=== PATIENT | male | born 1985 | race Caucasian/White ===

== ENCOUNTER 2019-06-21 11:29 | Emergency (ER) | payer OTHER ==
[~2019-06-21] VITALS: Ht 170.2 cm; Wt 63.5 kg
--- NOTE | 2019-06-21 11:38 | ED Headache ---
General Chief Complaint: Head/Cervical Problems Stated Complaint: HEADACHE Source: patient Exam Limitations: no limitations History of Present Illness Date Seen by Provider: Jun 21, 2019 Time Seen by Provider: 11:37 Initial Comments 33 y/o male c/o headache syndrome onset yesterday. He has taken excedrin, advis, tylenol, excedrin migraine, with minimal relief. He takes nortryptylene nightly, he says for headache. He also took benadry. However, he does have insomnia, and both are also indicated for this. Headache is frontal, behind the eyes. He worked at this job yesterday. He doesn't work today. He also had difficulty sleeping last night. 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 He describes intermittent headaches, and last one was a year ago. He denies nausea, photophobia, aura, sensory or motor deficits during these episodes. He has been on Nortryptylene for 2 years. Occassionally there is visual d isturbances, but no true photophobia. Timing/Duration: 24 hours Severity/Quality: moderate, severe, throbbing Location: frontal Prior Headaches/Recent Trauma: no recent headache/trauma, occasional headaches Modifying Factors: improves with medication, improves with rest Associated Symptoms: nausea/vomiting Allergies and Home Medications Allergies Coded Allergies: amoxicillin (Verified Allergy, Unknown, hives, 06/21/19) Patient Home Medication List Home Medication List Reviewed: Yes Review of Systems Review of Systems Constitutional: see HPI Eyes: Vision Changes Ears, Nose, Mouth, Throat: no symptoms reported, see HPI Respiratory: no symptoms reported, cough, orthopnea Cardiovascular: no symptoms reported, chest pain, edema Gastrointestinal: No RUQ, No LUQ, No RLQ, No LLQ; no symptoms reported; No see HPI, No abdominal pain; diarrhea; No dysphagia, No hematemesis, No heartburn, No jaundice, No loss of appetite, No melena; nausea; No vomiting, No other Genitourinary: no symptoms reported, decreased output, dysuria, nocturia Musculoskeletal: no symptoms reported, back pain Skin: no symptoms reported, change in color Psychiatric/Neurological: No Symptoms Reported, See HPI All Other Systems Reviewed Negative Unless Noted: Yes Physical Exam Vital Signs Vital Signs - First Documented 06/21/19 11:37 Temp 97.5 Pulse 115 Resp 18 B/P (MAP) 147/96 (113) Pulse Ox 96 Capillary Refill : Height, Weight, BMI Height: '" Weight: lbs. oz. kg; BMI Method: General Appearance: WD/WN, no apparent distress HEENT: PERRL/EOMI, normal ENT inspection Neck: non-tender, full range of motion, supple Cardiovascular: regular rate, rhythm, no edema Respiratory: chest non-tender, no respiratory distress, no accessory muscle use Extremities: normal range of motion, normal inspection Psychiatric: alert, oriented x 3 Crainal Nerves: normal hearing, normal speech, PERRL Coordination/Gait: normal gait Skin: normal color, warm/dry, tattoos/piercings Lymphatic: no adenopathy Progress/Results/Core Measures Results/Orders My Orders Orders - NORMAN-LEROY CHRISTOPHER MD Ns Iv 1000 Ml (Sodium Chloride 0.9%) (06/21/19 12:00) Prochlorperazine Injection (Compazine In (06/21/19 12:00) Diphenhydramine Injection (Benadryl Inje (06/21/19 12:00) Ketorolac Injection (Toradol Injection) (06/21/19 12:00) Lorazepam Injection (Ativan Injection) (06/21/19 12:00) Lorazepam Injection (Ativan Injection) (06/21/19 12:00) Ed Iv/Invasive Line Start (06/21/19 12:54) Medications Given in ED Current Medications Medications Dose Ordered Sig/Ana Cristina Route Start Time Stop Time Status Last Admin Dose Admin Diphenhydramine HCl 25 mg ONCE ONCE IVP 06/21/19 12:00 06/21/19 12:01 DC 06/21/19 12:19 25 MG Ketorolac Tromethamine 30 mg ONCE ONCE IVP 06/21/19 12:00 06/21/19 12:01 DC 06/21/19 12:19 30 MG Lorazepam 1 mg ONCE PRN IVP 06/21/19 12:00 06/21/19 12:11 1 MG Prochlorperazine Edisylate 10 mg ONCE ONCE IV 06/21/19 12:00 06/21/19 12:01 DC 06/21/19 12:19 10 MG Vital Signs/I&O 06/21/19 06/21/19 11:37 12:19 Temp 97.5 97.5 Pulse 115 Resp 18 B/P (MAP) 147/96 (113) Pulse Ox 96 Departure Impression Primary Impression: Headache Disposition: 01 HOME, SELF-CARE Condition: Stable Departure-Patient Inst. Referrals: MANISH TAVERAS (PCP/Family) Primary Care Physician LEROY COLLINS MD Jun 21, 2019 11:38
[2019-06-21] MEDS ORDERED: NS IV 1000 ML 1,000 ML IV SCH (12:00)
[2019-06-21] MEDS ORDERED: diphenhydrAMINE 50 MG/ML INJ (BENADRYL) IVP ONE (12:00)
[2019-06-21] MEDS ORDERED: PROCHLORPERAZINE 10 MG/2ML INJ (COMPAZINE) IV ONE (12:00)
[2019-06-21] MEDS ORDERED: KETOROLAC 30 MG/ML VIAL IVP ONE (12:00)
[2019-06-21] MEDS ORDERED: LORazepam INJ 2 MG/ML (ATIVAN) VIAL IVP PRN (12:00)
[2019-06-21] MEDS ORDERED: LORazepam INJ 2 MG/ML (ATIVAN) VIAL IVP ONE (12:00)
[2019-06-21] MEDS ORDERED: fioricet PO (13:21)
[2019-06-21 13:25] VITALS: BP 141/83
== END 2019-06-21 13:27 | disposition home or self-care (01) ==
LOC: ER FS 11:31
DX: R51 Headache (principal); G47.00 Insomnia, unspecified; Z88.0 Allergy status to penicillin

== ENCOUNTER → 2022-06-30 | Outpatient (CLI) | payer BC ==
[~2022-06-30] MED LIST: fioricet PO
[2022-06-30 14:39] LABS: ALANINE AMINOTRANSFERASE 43 U/L (0-55); ALKALINE PHOSPHATASE 54 U/L (40-136); BUN/CREATININE RATIO 12; CALCIUM 9.8 MG/DL (8.5-10.1); CARBON DIOXIDE 24 MMOL/L (21-32); CHLORIDE 103 MMOL/L (98-107); CREATININE SERUM 1.06 MG/DL (0.60-1.30); GFR ESTIMATED 94; GLUCOSE 98 MG/DL (70-105); POTASSIUM 4.4 MMOL/L (3.6-5.0); SODIUM 139 MMOL/L (135-145); TOTAL PROTEIN 7.8 GM/DL (6.4-8.2)
[2022-06-30 14:40] LABS: ALBUMIN 4.8 GM/DL (3.2-4.5)
[2022-07-01 12:00] LABS: CHOLESTEROL 178 MG/DL (< 200); HDL CHOLESTEROL 47 MG/DL (40-60); TRIGLYCERIDES 119 MG/DL (<150); VLDL CHOLESTEROL 24 MG/DL (5-40)
== END ==
LOC: LAB FS 13:40
PROVIDERS: ATTEND Family Medicine
DX: Z00.00 Encounter for general adult medical examination without abnormal findings (principal); J30.2 Other seasonal allergic rhinitis; J45.20 Mild intermittent asthma, uncomplicated; I10 Essential (primary) hypertension; F41.1 Generalized anxiety disorder
CPT/HCPCS: 36415; 80053; 80061